=== PATIENT | male | born 1955 | race Caucasian/White ===

== ENCOUNTER → 2021-07-15 | Outpatient (CLI) | payer MEDICARE, MEDICAID | LOC: WOUNDCARE 13:22 | PROVIDERS: ATTEND Family Medicine | DX: L89.893 Pressure ulcer of other site, stage 3 (principal); F72 Severe intellectual disabilities; L92.8 Other granulomatous disorders of the skin and subcutaneous tissue | CPT/HCPCS: 17250; A6212; G0463 ==

== ENCOUNTER → 2021-07-23 | Outpatient (CLI) | payer MEDICARE, MEDICAID ==
[2021-07-23 10:48] LABS: BASOPHILS # (AUTO) 0.1 10^3/uL (0.0-0.1); BASOPHILS % (AUTO) 1 % (0-10); EOSINOPHILS # (AUTO) 0.5 10^3/uL (0.0-0.3); EOSINOPHILS % (AUTO) 7 % (0-10); HEMATOCRIT 45 % (40-54); HEMOGLOBIN 14.8 g/dL (13.3-17.7); LYMPHOCYTES # (AUTO) 1.4 10^3/uL (1.0-4.0); LYMPHOCYTES % (AUTO) 22 % (12-44); MEAN CORPUSCULAR HEMOGLOBIN 31 pg (25-34); MEAN CORPUSCULAR HGB CONC 33 g/dL (32-36); MEAN CORPUSCULAR VOLUME 93 fL (80-99); MONOCYTES # (AUTO) 0.6 10^3/uL (0.0-1.0); MONOCYTES % (AUTO) 10 % (0-12); NEUTROPHILS # (AUTO) 3.8 10^3/uL (1.8-7.8); NEUTROPHILS % (AUTO) 60 % (42-75); PLATELET COUNT 214 10^3/uL (130-400); WHITE BLOOD COUNT 6.3 10^3/uL (4.3-11.0)
[2021-07-23 11:05] LABS: ALBUMIN 4.2 GM/DL (3.2-4.5); BILIRUBIN,TOTAL 0.3 MG/DL (0.1-1.0); CALCIUM 9.1 MG/DL (8.5-10.1); CREATININE SERUM 0.81 MG/DL (0.60-1.30); POTASSIUM 3.8 MMOL/L (3.6-5.0); TOTAL PROTEIN 7.8 GM/DL (6.4-8.2)
== END ==
LOC: LAB 10:20
PROVIDERS: ATTEND Family Medicine
DX: L89.893 Pressure ulcer of other site, stage 3 (principal); F72 Severe intellectual disabilities; L92.8 Other granulomatous disorders of the skin and subcutaneous tissue
CPT/HCPCS: 36415; 80053; 85025

== ENCOUNTER → 2021-07-23 | Outpatient (CLI) | payer MEDICARE, MEDICAID | LOC: WOUNDCARE 09:31 | PROVIDERS: ATTEND Family Medicine | DX: L89.893 Pressure ulcer of other site, stage 3 (principal); F72 Severe intellectual disabilities; L92.8 Other granulomatous disorders of the skin and subcutaneous tissue | CPT/HCPCS: 17250; A6212; G0463 ==

== ENCOUNTER → 2021-07-30 | Outpatient (CLI) | payer MEDICARE, MEDICAID | LOC: WOUNDCARE 09:16 | PROVIDERS: ATTEND Family Medicine | DX: L89.153 Pressure ulcer of sacral region, stage 3 (principal); F72 Severe intellectual disabilities; L92.8 Other granulomatous disorders of the skin and subcutaneous tissue | CPT/HCPCS: 99212 ==